=== PATIENT | male | born 2000 | race Caucasian/White ===

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

== ENCOUNTER 2020-08-04 22:53 | Emergency (ER) | payer MEDICAID ==
[~2020-08-04] VITALS: Ht 170.2 cm; Wt 64.9 kg
[2020-08-04 23:00] VITALS: BP_SYST 105
[2020-08-04 23:13] LABS: BILIRUBIN,URINE NEGATIVE (NEGATIVE); BLOOD, URINE TRACE (NEGATIVE); CLARITY/URINE CLEAR (CLEAR); COLOR,URINE YELLOW (YELLOW); GLUCOSE,URINE NEGATIVE (NEGATIVE); KETONES,URINE NEGATIVE (NEGATIVE); LEUKOCYTE ESTERASE ,URINE NEGATIVE (NEGATIVE); NITRITE, URINE NEGATIVE (NEGATIVE); PH,URINE 5.5 (5.0-8.0); PROTEIN URINE TRACE (NEGATIVE)
[2020-08-04] MEDS ORDERED: ONDANSETRON HCL 4 MG/2 ML VIAL IVP ONE (23:15)
[2020-08-04] MEDS ORDERED: NACL 0.9% 1,000 ML IV ONE (23:15)
[2020-08-04 23:17] LABS: BACTERIA,URINE RARE /HPF (None Seen); WBC,URINE 0-3 /HPF (0-3)
[2020-08-04 23:47] LABS: CALCIUM 9.2 mg/dL (8.4-11.0); CREATININE 1.11 mg/dL (0.55-1.30); POTASSIUM 4.1 mmol/L (3.5-5.1)
[2020-08-04 23:53] LABS: ALBUMIN 4.4 g/dL (3.4-4.8); TOTAL BILIRUBIN 0.7 mg/dL (0.0-1.0)
[2020-08-05 00:05] LABS: BASOPHILS % (AUTO) 0.1 % (0.0-2.0); EOSINOPHILS % (AUTO) 0.2 % (0.0-4.0); HEMOGLOBIN 17.2 g/dL (14.0-18.0); LYMPHOCYTES # (AUTO) 0.2 K/uL (1.0-5.5); LYMPHOCYTES % (AUTO) 1.7 % (20.5-51.5); MEAN CORPUSCULAR HEMOGLOBIN 31 pg (27-31); MEAN CORPUSCULAR HGB CONC 34 % (32-36); MEAN CORPUSCULAR VOLUME 91 fL (79.0-98.0); MONOCYTES # (AUTO) 0.4 K/uL (0.0-1.0); MONOCYTES % (AUTO) 3.1 % (1.7-9.3); NEUTROPHILS # (AUTO) 13.7 K/uL (1.8-7.7); NEUTROPHILS % (AUTO) 94.9 % (40.0-70.0); PLATELET COUNT (AUTO) 203 K/uL (130-430); RED BLOOD CELL COUNT(AUTO) 5.51 MIL/uL (4.2-6.2); RED CELL DISTRIBUTION WIDTH 12.3 % (9.0-15.0); WHITE BLOOD COUNT (AUTO) 14.5 K/uL (4.5-11.0)
[2020-08-05] MEDS ORDERED: ONDA-8 TL (01:03)
[2020-08-05] MEDS ORDERED: SIME80TA15 PO (01:03)
[2020-08-05 01:20] VITALS: BP_SYST 105
== END 2020-08-05 01:20 | disposition home or self-care (01) ==
LOC: SED 22:53
DX: R10.13 Epigastric pain (principal); R10.11 Right upper quadrant pain; R74.01 Elevation of levels of liver transaminase levels; Z79.899 Other long term (current) drug therapy
CPT/HCPCS: 36415; 74177; 76376; 80053; 81000; 83690; 85025; 96361; 96374; 99285; J2405; J7030; Q9967

== ENCOUNTER 2022-02-27 11:58 | Emergency (ER) | payer MEDICAID ==
[~2022-02-27] VITALS: Ht 170.2 cm; Wt 61.2 kg
[~2022-02-27 11:58] MED LIST: ONDA-8 TL; SIME80TA15 PO
[2022-02-27 12:00] VITALS: BP_SYST 125
[2022-02-27 15:18] VITALS: BP_SYST 125
== END 2022-02-27 15:20 | disposition home or self-care (01) ==
LOC: SED 11:58
DX: S61.210A Laceration without foreign body of right index finger without damage to nail, initial encounter (principal); Z79.899 Other long term (current) drug therapy; W26.8XXA Contact with other sharp object(s), not elsewhere classified, initial encounter; Y93.89 Activity, other specified; Y92.89 Other specified places as the place of occurrence of the external cause; Y99.8 Other external cause status
CPT/HCPCS: 99282

== ENCOUNTER 2023-07-18 10:53 | Emergency (ER) | payer OTHER, MEDICAID ==
[~2023-07-18] VITALS: Ht 167.6 cm; Wt 63.5 kg
[2023-07-18 10:53] VITALS: BP_SYST 123; PULSE 105; RESP 19; TEMP 98.1; O2SAT 99
[2023-07-18] MEDS: NACL 0.9% 1,000 ML IV ONE ×2 (11:07→14:07)
[2023-07-18 11:13] LABS: BASOPHILS % (AUTO) 0.3 % (0.0-2.0); EOSINOPHILS % (AUTO) 0.4 % (0.0-4.0); HEMATOCRIT 45.6 % (36-54); HEMOGLOBIN 15.9 g/dL (14.0-18.0); LYMPHOCYTES # (AUTO) 1.6 K/uL (1.0-5.5); LYMPHOCYTES % (AUTO) 12.8 % (20.5-51.5); MEAN CORPUSCULAR HEMOGLOBIN 32 pg (27-31); MEAN CORPUSCULAR HGB CONC 35 % (32-36); MEAN CORPUSCULAR VOLUME 90 fL (79.0-98.0); MONOCYTES # (AUTO) 0.7 K/uL (0.0-1.0); MONOCYTES % (AUTO) 5.5 % (1.7-9.3); NEUTROPHILS # (AUTO) 10.2 K/uL (1.8-7.7); PLATELET COUNT (AUTO) 259 K/uL (130-430); RED BLOOD CELL COUNT(AUTO) 5.04 MIL/uL (4.2-6.2); RED CELL DISTRIBUTION WIDTH 12.3 % (9.0-15.0); WHITE BLOOD COUNT (AUTO) 12.5 K/uL (4.8-10.8)
[2023-07-18 11:35] LABS: ALANINE AMINOTRANSFERASE 39 U/L (12-78); ALBUMIN 3.9 g/dL (3.4-4.8); ANION GAP 10 (5-15); ASPARTATE AMINOTRANSFERASE 42 U/L (10-37); CALCIUM 9.1 mg/dL (8.4-11.0); CARBON DIOXIDE 27 mmol/L (23-29); CHLORIDE 107 mmol/L (98-107); CREATININE 1.08 mg/dL (0.55-1.30); GFR AFRICAN AMERICAN 109 mL/min (>90); GFR NON AFRICAN-AMERICAN 90 mL/min (>90); GLUCOSE 159 mg/dL (74-106); POTASSIUM 4.2 mmol/L (3.5-5.1); SODIUM SERUM 144 mmol/L (136-145); TOTAL BILIRUBIN 0.7 mg/dL (0.0-1.0); TOTAL PROTEIN, SERUM 7.8 g/dL (6.4-8.3); UREA NITROGEN, BLOOD 18 mg/dL (8-21)
[2023-07-18 11:37] LABS: BILIRUBIN,DIRECT 0.2 mg/dL (0.0-0.3)
[2023-07-18] MEDS: HYDROcodone/ACETAMIN 5-325 MG TAB (NORCO/ VICODIN) PO ONE (12:03)
[2023-07-18] MEDS: BACITRACIN 1 GM OINT TP ONE (14:08)
[2023-07-18] MEDS ORDERED: HYDR-3917 PO ×2 (14:34→14:41)
[2023-07-18 14:50] VITALS: BP_SYST 132; PULSE 90; RESP 20; TEMP 98.6; O2SAT 99
== END 2023-07-18 14:50 | disposition home or self-care (01) ==
LOC: SED 10:53
DX: S06.0X9A Concussion with loss of consciousness of unspecified duration, initial encounter (principal); S62.607A Fracture of unspecified phalanx of left little finger, initial encounter for closed fracture; S80.01XA Contusion of right knee, initial encounter; S30.1XXA Contusion of abdominal wall, initial encounter; J45.909 Unspecified asthma, uncomplicated; Z79.899 Other long term (current) drug therapy; V89.2XXA Person injured in unspecified motor-vehicle accident, traffic, initial encounter; Y93.89 Activity, other specified; Y92.89 Other specified places as the place of occurrence of the external cause; Y99.8 Other external cause status
CPT/HCPCS: 99291; 70450; 96360; 71045; 96361; 80076; 80048; 83880; 85025; 85379; 85610; 85730; 84484; 36415; 93005; 73130; 71260; 74177; Q9967; J7030